=== PATIENT | male | born 1955 | race Caucasian/White ===

== ENCOUNTER 2020-09-01 19:57 | Inpatient (IN) | payer MEDICARE, OTHER ==
[~2020-09-01] VITALS: Ht 165.1 cm; Wt 92.1 kg
--- NOTE | 2020-09-01 20:45 | NUR ---
OPEN BED AVAILABILE IN ER. PT BIBFAMILY C/O WEAKNESS, SOB, FEVER. PER FAMILY PT TESTED POSITIVE FOR COVID X2 WEEKS AGO, NO RELIEF OF SYMPTOMS. O2 SAT 90% ON ROOM AIR, PLACED ON 6L NC TOLERATING WELL O2 SAT NOW 96%. FEBRILE ON ARRIVAL, LAST DOSE TYLENOL 500MG X2HR SEROLOGY TECHNICIAN. PT AAOX4, NORTH KOREAN SPEAKING. RESPIRATIONS EVEN AND UNLABORED. SKIN WARM TO TOUCH. NO ACUTE DISTRESS NOTED AT THIS TIME. PLACED IN GOWN AND ON MONITOR, WILL CONTINUE TO MONITOR
--- NOTE | 2020-09-01 20:55 | NUR ---
IV INITIATED RAC 20G. LABS DRAWN FROM SITE. EQUITIES ANALYST AT BEDSIDE FOR COLLECTION. IV INTACT AND PATENT, PLACED ON SALINE LOCK
[2020-09-01] MEDS ORDERED: IV NS 0.9% 500 ML IV ONE (21:00)
--- NOTE | 2020-09-01 21:15 | NUR ---
covid swab collected and sent to the lab.
[2020-09-01 21:17] LABS: BASOPHILS % (AUTO) 0.4 % (0.0-2.0); EOSINOPHILS % (AUTO) 0.1 % (0.0-6.0); HEMATOCRIT 44 % (39-51); HEMOGLOBIN 15.1 g/dL (13.5-17.5); LYMPHOCYTES # (AUTO) 1.4 /CMM (0.8-4.8); LYMPHOCYTES % (AUTO) 21.9 % (20.0-44.0); MEAN CORPUSCULAR HGB CONC 35 g/dl (31.0-36.0); MEAN CORPUSCULAR VOLUME 82 fL (80-96); NEUTROPHILS % (AUTO) 61.6 % (43.0-81.0); PLATELET COUNT (AUTO) 205 /CMM (150-450); RED BLOOD CELL COUNT(AUTO) 5.35 MIL/uL (4.5-6.0); WHITE BLOOD COUNT (AUTO) 6.5 K/uL (4.3-11.0)
[2020-09-01] MEDS ORDERED: AZITHROMYCIN 500 MG in IV D5W 250 ML IV ONE (21:30)
[2020-09-01] MEDS ORDERED: DEXAMETHASONE SOD PHOSPHATE 10 MG/ML VIAL IV ONE (21:30)
[2020-09-01] MEDS ORDERED: CEFTRIAXONE 1GM BAG (ER ONLY) 50 ML IV ONE (21:30)
[2020-09-01 21:34] LABS: D-DIMER 1.18 mg/L(FEU (0.17-0.50)
[2020-09-01] MEDS ORDERED: DEXAMETHASONE SOD PHOSPHATE 10 MG/ML VIAL ONE (21:40)
[2020-09-01] MEDS ORDERED: CEFTRIAXONE 1 G VIAL ONE (21:41)
[2020-09-01] MEDS ORDERED: AZITHROMYCIN 500 MG VIAL ONE (21:41)
--- NOTE | 2020-09-01 21:41 | NUR ---
AWAITING FOR URINE SAMPLE.
[2020-09-01 21:43] LABS: ALBUMIN 2.8 g/dL (3.4-5.0); BILIRUBIN,TOTAL 0.6 mg/dL (0.2-1.0); CALCIUM, SERUM 7.9 mg/dL (8.5-10.1); CREATININE 1.1 mg/dL (0.6-1.3)
--- NOTE | 2020-09-01 21:50 | NUR ---
ADEOLA MIRANDA AT BEDSIDE SPEAKING TO PT AND DAUGHTER REGARDING PLAN OF CARE.
[2020-09-01 22:17] LABS: C-REACTIVE PROTEIN 17.1 mg/dL (0.0-0.9)
[2020-09-01] MEDS ORDERED: DEXTROSE 50%-WATER 50 ML DISP.SYRIN IV PRN (22:30)
[2020-09-01] MEDS ORDERED: ONDANSETRON HCL/PF 4 MG/2 ML VIAL IVP PRN (22:30)
[2020-09-01] MEDS ORDERED: ALBUTEROL SULFATE 8 GM HFA.AER.AD IH PRN (22:30)
[2020-09-01] MEDS ORDERED: TEMAZEPAM 15 MG CAPSULE PO PRN (22:30)
[2020-09-01] MEDS ORDERED: ACETAMINOPHEN 325 MG TABLET PO PRN (22:30)
--- NOTE | 2020-09-02 04:09 | NUR ---
PT ASLEEP, VSS.
[2020-09-02 05:25] LABS: BASOPHILS % (AUTO) 0.3 % (0.0-2.0); HEMATOCRIT 45 % (39-51); HEMOGLOBIN 15.6 g/dL (13.5-17.5); LYMPHOCYTES # (AUTO) 0.8 /CMM (0.8-4.8); LYMPHOCYTES % (AUTO) 16.9 % (20.0-44.0); MEAN CORPUSCULAR HGB CONC 34 g/dl (31.0-36.0); MEAN CORPUSCULAR VOLUME 83 fL (80-96); MONOCYTES # (AUTO) 0.5 /CMM (0.1-1.30); MONOCYTES % (AUTO) 10.8 % (2.0-12.0); NEUTROPHILS # (AUTO) 3.3 /CMM (1.8-8.9); PLATELET COUNT (AUTO) 198 /CMM (150-450); RED BLOOD CELL COUNT(AUTO) 5.47 MIL/uL (4.5-6.0); WHITE BLOOD COUNT (AUTO) 4.6 K/uL (4.3-11.0)
[2020-09-02 05:36] LABS: ALBUMIN 2.7 g/dL (3.4-5.0); BILIRUBIN,TOTAL 0.6 mg/dL (0.2-1.0); CALCIUM, SERUM 8.4 mg/dL (8.5-10.1); POTASSIUM 4.8 mmol/L (3.5-5.1); TOTAL PROTEIN, SERUM 7.1 g/dL (6.4-8.2)
--- NOTE | 2020-09-02 07:19 | NUR ---
AWAKE RESTING COMFORTABLY. VSS. NOTED TO BE SAT 92-95% ON 10L SIMPLE MASK
[2020-09-02] MEDS: BLOOD SUGAR DIAGNOSTIC 1 EACH STRIP IN SCH ×4 (07:37→22:29)
[2020-09-02] MEDS: INSULIN REGULAR, HUMAN 100 UNIT/ML 3 ML VIAL SQ PRN ×4 (07:45→22:31)
--- NOTE | 2020-09-02 07:56 | NUR ---
REPORT GIVEN TO NAINA HAMMOND FOR WAYNE
[2020-09-02] MEDS ORDERED: ROSU10TA29 PO (08:31)
[2020-09-02] MEDS ORDERED: GLIM1TAB18 PO (08:31)
[2020-09-02] MEDS ORDERED: METF-440 PO (08:31)
[2020-09-02] MEDS ORDERED: DICL50TA9 PO (08:31)
[2020-09-02] MEDS ORDERED: GABA300C PO (08:31)
[2020-09-02] MEDS ORDERED: LANS30CA56 PO (08:31)
[2020-09-02] MEDS ORDERED: VALS40TA12 PO (08:32)
[2020-09-02] MEDS ORDERED: DEXAMETHASONE SOD PHOSPHATE 4 MG/ML VIAL IV SCH (09:00)
[2020-09-02] MEDS ORDERED: ENOXAPARIN SODIUM 40 MG/0.4 ML DISP.SYRIN SQ ONE (09:16)
[2020-09-02] MEDS ORDERED: DEXAMETHASONE SOD PHOSPHATE 4 MG/ML VIAL ONE (09:16)
[2020-09-02] MEDS ORDERED: PANTOPRAZOLE 40 MG TABLET.DR PO ONE (09:16)
[2020-09-02] MEDS: PANTOPRAZOLE 40 MG TABLET.DR PO SCH (09:38)
[2020-09-02] MEDS: ENOXAPARIN SODIUM 40 MG/0.4 ML DISP.SYRIN SQ SCH (09:39)
--- NOTE | 2020-09-02 09:41 | NUR ---
PATIENT A/OX4, BREATHING EVEN AND UNLABORED, TOLERATING CURRENT OXYGEN AT THIS TIME. PULSE OX 88% ON ROOM AIR. ATE BREAKFAST AND TOLERATED WELL.
--- NOTE | 2020-09-02 12:30 | NUR ---
PATIENT RESTING, NO DISTRESS NOTED. NEEDS ATTENDED. AMBULATES TO RESTROOM.
[2020-09-02] MEDS ORDERED: REMDESIVIR (CHARGED) 200 MG, *LOADING DOSE 1 EA in IV NS 0.9% 210 ML IV ONE (17:00)
--- NOTE | 2020-09-02 19:56 | NUR ---
TOOK OVER PT CARE. PT NOTED TO BE ON 10L SIMPLE MASK, SAT 94. NO SOB NOTED. PT DID C/O COUGH WHICH I WILL ADMINISTER ROBITUSSIN. PT AWAKE, AWARE OF PLAN OF CARE. VSS. WILL CONTINUE TO MONITOR.
[2020-09-02] MEDS ORDERED: GUAIFENESIN/CODEINE 10 ML UDC ONE (20:06)
[2020-09-02] MEDS: GUAIFENESIN/CODEINE 10 ML UDC PO PRN (20:10)
[2020-09-02] MEDS: CEFTRIAXONE 1 G in IV D5W 50 ML IV SCH (21:00)
[2020-09-02] MEDS: AZITHROMYCIN 500 MG in IV D5W 250 ML IV SCH (22:29)
--- NOTE | 2020-09-02 22:35 | NUR ---
PT NOTED TO BE SAT 93-94% ON 10L SIMPLE MASK. PT WAS SWITCHED TO 15L N.R. PT STATING NR IS HELPING HIM BREATH BETTER. WILL CONTINUE TO MONITOR. SAT 98% ON NR.
--- NOTE | 2020-09-02 22:36 | NUR ---
PT AMBULATED TO THE RESTROOM.
[2020-09-03 05:25] LABS: BASOPHILS % (AUTO) 0.3 % (0.0-2.0); HEMATOCRIT 45 % (39-51); HEMOGLOBIN 15.6 g/dL (13.5-17.5); LYMPHOCYTES # (AUTO) 1.4 /CMM (0.8-4.8); LYMPHOCYTES % (AUTO) 11.5 % (20.0-44.0); MEAN CORPUSCULAR HGB CONC 34 g/dl (31.0-36.0); MEAN CORPUSCULAR VOLUME 82 fL (80-96); MONOCYTES # (AUTO) 1.6 /CMM (0.1-1.30); MONOCYTES % (AUTO) 13.3 % (2.0-12.0); NEUTROPHILS % (AUTO) 74.9 % (43.0-81.0); PLATELET COUNT (AUTO) 238 /CMM (150-450); RED BLOOD CELL COUNT(AUTO) 5.51 MIL/uL (4.5-6.0)
[2020-09-03 05:34] LABS: ALBUMIN 2.5 g/dL (3.4-5.0); BILIRUBIN,DIRECT 0.2 mg/dL (0.0-0.2); BILIRUBIN,TOTAL 0.4 mg/dL (0.2-1.0); CALCIUM, SERUM 8.5 mg/dL (8.5-10.1); POTASSIUM 4.5 mmol/L (3.5-5.1)
--- NOTE | 2020-09-03 06:30 | NUR ---
PT RESTING, VSS. ON MONITORT AND PULSE OX.
--- NOTE | 2020-09-03 07:28 | NUR ---
REPROT GIVEN TO NAINA HAMMOND FOR WAYNE
[2020-09-03] MEDS: BLOOD SUGAR DIAGNOSTIC 1 EACH STRIP IN SCH ×4 (08:30→22:02)
[2020-09-03] MEDS ORDERED: ENOXAPARIN SODIUM 40 MG/0.4 ML DISP.SYRIN SQ ONE (09:09)
[2020-09-03] MEDS ORDERED: PANTOPRAZOLE 40 MG VIAL ONE (09:10)
[2020-09-03] MEDS ORDERED: DEXAMETHASONE SOD PHOSPHATE 10 MG/ML VIAL ONE (09:10)
[2020-09-03] MEDS: PANTOPRAZOLE 40 MG TABLET.DR PO SCH (09:19)
[2020-09-03] MEDS: DEXAMETHASONE SOD PHOSPHATE 4 MG/ML VIAL IV SCH (09:19)
[2020-09-03] MEDS: ENOXAPARIN SODIUM 40 MG/0.4 ML DISP.SYRIN SQ SCH ×2 (09:20→21:33)
[2020-09-03] MEDS: INSULIN REGULAR, HUMAN 100 UNIT/ML 3 ML VIAL SQ PRN ×3 (11:12→21:58)
--- NOTE | 2020-09-03 15:30 | NUR ---
report given to steph bryan
--- NOTE | 2020-09-03 15:36 | NUR ---
transferred to 117-1
[2020-09-03 15:40] VITALS: BP 96/60
--- NOTE | 2020-09-03 15:40 | NUR ---
TRUCK MECHANIC APPRENTICE NOTES PATIENT RECEIVED VIA CRYSTALRMILDRED, ALERT AND ORIENTED X 4, TAMAZIGHT SPEAKING, ON NRB, 15 LITERS WITH NO RESPIRATORY DISTRESS AT THIS TIME. PATIENT DENIES ANY CHEST PAIN, PAIN OR DISCOMFORT. IV ACCESS INTACT AND PATENT. SKIN WARM AND DRY TO TOUCH. SAFETY AND ISOLATION PRECAUTIONS IMPLEMENTED WITH BED LOCKED, BILATERAL SIDE RAILS UP, BED IN THE LOWEST POSITION AND CALL LIGHT WITHIN EASY REACH OF THE PATIENT. WILL CONTINUE TO MONITOR PATIENT.
[2020-09-03 16:00] VITALS: BP 96/62
[2020-09-03] MEDS: REMDESIVIR (CHARGED) 100 MG in IV NS 0.9% 100 ML IV SCH (16:56)
--- NOTE | 2020-09-03 19:32 | NUR ---
SCHOOL YEAR NANNY NOTES PATIENT IN BED RESTING COMFORTABLY, ALERT AND ORIENTED X 4, MAORI SPEAKING. ON NRB MASK 15 LITERS. ON BUILDING OFFICIAL SR. PATIENT DENIES PAIN AND DISCOMFORT AT THIS TIME. IV ACCESS INTACT AND PATENT MET ALL OF PATIENT'S NEEDS. SKIN KEPT WARM, CLEAN AND DRY. SAFETY PRECAUTIONS IMPLEMENTED WITH BED LOCKED, BILATERAL SIDE RAILS UP, BED ALARM ON, AND CALL LIGHT WITHIN EASY REACH. WILL ENDORSE PLAN OF CARE TO UPCOMING RN.
[2020-09-03 20:00] VITALS: BP 116/79
[2020-09-03] MEDS: AZITHROMYCIN 500 MG in IV D5W 250 ML IV SCH (21:35)
[2020-09-03] MEDS: CEFTRIAXONE 1 G in IV D5W 50 ML IV SCH (21:35)
[2020-09-04] VITALS: BP 106/62
[2020-09-04 04:00] VITALS: BP 102/70
--- NOTE | 2020-09-04 06:09 | NUR ---
RN notes Patient in bed resting comfortably with no significant change of condition. Alert and oriented x 4, venezuelan speaking but understands enlglish. at the other bed. No respiratory distress or shortness of breath. Breathing even and unlabored. On non-rebreather mask, tolerating well. No complaint of pain or discomfort. Kept clean and dry. Will endorse to next shift for continuity of care.
[2020-09-04 07:22] LABS: BASOPHILS % (AUTO) 0.1 % (0.0-2.0); HEMATOCRIT 43 % (39-51); HEMOGLOBIN 14.7 g/dL (13.5-17.5); LYMPHOCYTES # (AUTO) 1.2 /CMM (0.8-4.8); LYMPHOCYTES % (AUTO) 9.7 % (20.0-44.0); MEAN CORPUSCULAR HGB CONC 34 g/dl (31.0-36.0); MEAN CORPUSCULAR VOLUME 83 fL (80-96); MONOCYTES # (AUTO) 1.8 /CMM (0.1-1.30); MONOCYTES % (AUTO) 14.2 % (2.0-12.0); NEUTROPHILS # (AUTO) 9.6 /CMM (1.8-8.9); PLATELET COUNT (AUTO) 260 /CMM (150-450); RED BLOOD CELL COUNT(AUTO) 5.23 MIL/uL (4.5-6.0); WHITE BLOOD COUNT (AUTO) 12.6 K/uL (4.3-11.0)
[2020-09-04 08:00] VITALS: BP 107/70
--- NOTE | 2020-09-04 08:00 | NUR ---
OPEN NOTES PATIENT IS A/O X 4 ON 15L NON-REBREATHER WITH NO SIGNS OF DISTRESS. IV R AC #20 G . ON TELE MONITOR SR 72. NO COMPLAIN OF PAIN AT THIS TIME. SAFETY MEASURES ARE APPLIED BED IS IN THE LOWEST POSITION SIDE RAILS UP X 2. CALL LIGHT WITHIN REACH WILL CONTINUE TO MONITOR.
[2020-09-04 08:11] LABS: ALBUMIN 2.3 g/dL (3.4-5.0); BILIRUBIN,DIRECT 0.2 mg/dL (0.0-0.2); BILIRUBIN,TOTAL 0.5 mg/dL (0.2-1.0); CALCIUM, SERUM 8.1 mg/dL (8.5-10.1); CREATININE 0.8 mg/dL (0.6-1.3); POTASSIUM 4.2 mmol/L (3.5-5.1); TOTAL PROTEIN, SERUM 6.3 g/dL (6.4-8.2)
[2020-09-04] MEDS: BLOOD SUGAR DIAGNOSTIC 1 EACH STRIP IN SCH ×4 (09:01→21:31)
[2020-09-04] MEDS: PANTOPRAZOLE 40 MG TABLET.DR PO SCH (09:02)
[2020-09-04] MEDS: DEXAMETHASONE SOD PHOSPHATE 4 MG/ML VIAL IV SCH (09:02)
[2020-09-04] MEDS: ENOXAPARIN SODIUM 40 MG/0.4 ML DISP.SYRIN SQ SCH ×2 (09:03→20:37)
[2020-09-04] MEDS: INSULIN REGULAR, HUMAN 100 UNIT/ML 3 ML VIAL SQ PRN ×4 (09:07→21:30)
[2020-09-04 12:00] VITALS: BP 99/69
[2020-09-04 16:00] VITALS: BP 116/69
[2020-09-04] MEDS: REMDESIVIR (CHARGED) 100 MG in IV NS 0.9% 100 ML IV SCH (16:48)
--- NOTE | 2020-09-04 18:42 | NUR ---
RN CLOSE NOTES PATIENT IS A/O X 4 ON 10L SIMPLE MASK SPO2 90-95% WITH NO SIGNS OF DISTRESS. IV R AC #20G. ON TELE MONITOR SR/SB 54 WITH PVC. PATIENT KEPT CLEAN AND DRY. ALL NEEDS, CARE, TREATMENT, AND MEDICATIONS WERE ADMINISTERED ANTICIPATED PER ORDER. SAFETY MEASURES ARE APPLIED, BED IS IN LOW POSITION SIDE RAILS UP X 2. CALL LIGHT WITHIN REACH WILL ENDORSE TO THE RHIA NURSE.
--- NOTE | 2020-09-04 19:17 | NUR ---
RN NOTE RECEIVED PT AWAKE AND ALERT/ORIENTED X 3 IN BED IN SEMI ROBISON'S POSITION. PT ON 10L FACEMASK, RESPIRATIONS EVEN AND UNLABORED. PT DENIES PAIN OR DISCOMFORT. PT IS SR ON THE TELE MONITOR. IV ON RIGHT AC PATENT AND INTACT WITHOUT COMPLICATIONS NOTED AT SITE. PLAN OF CARE DISCUSSED, CALL LIGHT WITHIN REACH, SAFETY MEASURES IN PLACE PER PROTOCOL, WILL MONITOR PATIENT. .
[2020-09-04 20:00] VITALS: BP 131/93
[2020-09-04] MEDS: CEFTRIAXONE 1 G in IV D5W 50 ML IV SCH (20:27)
[2020-09-04] MEDS: AZITHROMYCIN 500 MG in IV D5W 250 ML IV SCH (21:07)
--- NOTE | 2020-09-04 22:00 | NUR ---
RN NOTE ALL DUE MEDICATIONS ADMINISTERED. PT TOLERATED WELL, WILL CONTINUE TO MONITOR
[2020-09-05] VITALS: BP 118/73
--- NOTE | 2020-09-05 01:00 | NUR ---
RN NOTE PT SLEEPING COMFORTABLY IN BED IN SEMI ROBISON'S POSITION. ON 10L FACEMASK, RESPIRATIONS EVEN AND UNLABORED. NO SIGNS OF PAIN OR DISCOMFORT. WILL CONTINUE TO MONITOR PATIENT.
[2020-09-05] MEDS: GUAIFENESIN/CODEINE 10 ML UDC PO PRN (01:43)
[2020-09-05 04:00] VITALS: BP 109/65
--- NOTE | 2020-09-05 04:13 | NUR ---
RN NOTE PT ASSISTED TO THE BATHROOM. TOLERATED WELL. OFFERED PT PARTIAL BED BATH AND LINEN CHANGE BUT PT REFUSED.
[2020-09-05 06:40] LABS: ALBUMIN 2.5 g/dL (3.4-5.0); BILIRUBIN,DIRECT 0.2 mg/dL (0.0-0.2); BILIRUBIN,TOTAL 0.5 mg/dL (0.2-1.0); CALCIUM, SERUM 8.2 mg/dL (8.5-10.1); CREATININE 0.8 mg/dL (0.6-1.3); POTASSIUM 3.6 mmol/L (3.5-5.1); TOTAL PROTEIN, SERUM 6.6 g/dL (6.4-8.2)
--- NOTE | 2020-09-05 07:00 | NUR ---
RN NOTE NO ACUTE CHANGES OBSERVED OVERNIGHT, PT SLEEPING IN BED IN SEMI ROBISON'S POSITION BUT EASILY AROUSABLE. PT ON 10L FACEMASK, RESPIRATIONS EVEN AND UNLABORED. NO SIGNS OR SYMPTOMS OR PAIN OR DISCOMFORT. PT HAS BEEN SR VIA TELE MONITOR ALL SHIFT. IV ON RIGHT AC PATENT AND INTACT WITHOUT COMPLICATIONS NOTED AT SITE. CALL LIGHT WITHIN REACH, SAFETY MEASURES IN PLACE PER PROTOCOL, BED LOCKED AND IN LOW POSITION, ALL NEEDS MET AND ATTENDED TO, WILL ENDORSE TO MORNING RN FOR WAYNE.
[2020-09-05 07:13] LABS: BASOPHILS % (AUTO) 0.1 % (0.0-2.0); EOSINOPHILS % (AUTO) 0.4 % (0.0-6.0); HEMATOCRIT 46 % (39-51); HEMOGLOBIN 15.4 g/dL (13.5-17.5); LYMPHOCYTES # (AUTO) 1.4 /CMM (0.8-4.8); LYMPHOCYTES % (AUTO) 10.9 % (20.0-44.0); MEAN CORPUSCULAR HGB CONC 34 g/dl (31.0-36.0); MEAN CORPUSCULAR VOLUME 83 fL (80-96); MONOCYTES # (AUTO) 1.6 /CMM (0.1-1.30); MONOCYTES % (AUTO) 12.5 % (2.0-12.0); NEUTROPHILS # (AUTO) 9.8 /CMM (1.8-8.9); NEUTROPHILS % (AUTO) 76.1 % (43.0-81.0); PLATELET COUNT (AUTO) 296 /CMM (150-450); RED BLOOD CELL COUNT(AUTO) 5.49 MIL/uL (4.5-6.0); WHITE BLOOD COUNT (AUTO) 12.9 K/uL (4.3-11.0)
[2020-09-05] MEDS: BLOOD SUGAR DIAGNOSTIC 1 EACH STRIP IN SCH ×4 (07:30→21:32)
--- NOTE | 2020-09-05 07:30 | NUR ---
MACHINE OPERATOR HOP PICKER OPENING NOTES PATIENT A/O X 4 IN ROOM AIR, WITH NO SIGNS OF DISTRESS. IV R AC #20 G. NOT IN ANY ACUTE DISTRESS AT THIS TIME. SAFETY MEASURES OBSERVED, AND BED IS IN THE LOWEST POSITION SIDE RAILS UP X 2. CALL LIGHT WITHIN REACH WILL CONTINUE TO MONITOR
[2020-09-05 08:00] VITALS: BP 112/82
[2020-09-05] MEDS: ENOXAPARIN SODIUM 40 MG/0.4 ML DISP.SYRIN SQ SCH ×2 (08:47→20:38)
[2020-09-05] MEDS: PANTOPRAZOLE 40 MG TABLET.DR PO SCH (08:49)
[2020-09-05] MEDS: DEXAMETHASONE SOD PHOSPHATE 4 MG/ML VIAL IV SCH (08:49)
[2020-09-05] MEDS: INSULIN REGULAR, HUMAN 100 UNIT/ML 3 ML VIAL SQ PRN ×4 (09:36→21:31)
[2020-09-05 12:00] VITALS: BP 112/82
[2020-09-05 16:00] VITALS: BP 112/82
[2020-09-05] MEDS: REMDESIVIR (CHARGED) 100 MG in IV NS 0.9% 100 ML IV SCH (17:00)
--- NOTE | 2020-09-05 18:54 | NUR ---
RN CLOSING NOTES PATIENT IS A/O X 4 IN ROOM AIR, WITH NO SIGNS OF DISTRESS. IV R AC #20 G. NO COMPLAIN OF PAIN AT THIS TIME. PATIENT KEPT CLEAN AND DRY. ALL NEEDS ATTENDED TO. SAFETY MEASURES ARE APPLIED, BED IS IN LOW POSITION SIDE RAILS UP X 2. WILL ENDORSE TO NEXT SHIFT FOR WAYNE.
--- NOTE | 2020-09-05 19:20 | NUR ---
RN NOTE RECEIVED PT AWAKE AND ALERT/ORIENTED X 3 IN BED IN SEMI ROBISON'S POSITION. PT ON 10L FACEMASK, RESPIRATIONS EVEN AND UNLABORED. PT DENIES PAIN OR DISCOMFORT. PT IS SR ON THE TELE MONITOR. IV ON RIGHT AC PATENT AND INTACT. FLUSHED WITHOUT COMPLICATIONS NOTED AT SITE. PLAN OF CARE DISCUSSED, PT VERBALIZED UNDERSTANDING, PT ASSISTED TO THE BATHROOM WITH 1 PERSON ASSIST AND TOLERATED WELL, CALL LIGHT WITHIN REACH, SAFETY MEASURES IN PLACE PER PROTOCOL, WILL MONITOR PATIENT.
[2020-09-05 20:00] VITALS: BP 121/71
[2020-09-05] MEDS: CEFTRIAXONE 1 G in IV D5W 50 ML IV SCH (20:05)
[2020-09-05] MEDS: AZITHROMYCIN 500 MG in IV D5W 250 ML IV SCH (21:11)
--- NOTE | 2020-09-05 23:00 | NUR ---
RN NOTE ALL DUE MEDICATIONS ADMINISTERED. PT TOLERATED WELL, WILL CONTINUE TO MONITOR.
[2020-09-06] VITALS (8 sets, daily range): BP systolic 96–120; BP diastolic 58–87
--- NOTE | 2020-09-06 02:00 | NUR ---
RN NOTE PT SLEEPING IN BED COMFORTABLY WITHOUT SIGNS OF DISTRESS, PAIN OR DISCOMFORT. SAFETY MEASURES IN PLACE, WILL CONTINUE TO MONITOR.
--- NOTE | 2020-09-06 07:05 | NUR ---
RN NOTE NO ACUTE CHANGES OVERNIGHT. PT AWAKE AND ALERT/ORIENTED X 3 SITTING UP IN BED. PT ON 10L FACEMASK, RESPIRATIONS EVEN AND UNLABORED. PT DENIES PAIN OR DISCOMFORT. PT IS SR ON THE TELE MONITOR. IV ON RIGHT AC PATENT AND INTACT. FLUSHED WITHOUT COMPLICATIONS NOTED AT SITE. PT VERBALIZED WANTING TO GO HOME TODAY AGAINST MEDICAL ADVICE, EDUCATED PT AND IMPORTANCE OF COMPLETING ORDERED TREATMENT DURING HOSPITALIZATION AND THAT CARE CANNOT BE PROVIDED IF THEY LEAVE AMA, PT AND CONTINUE TO STATE WISHING TO GO HOME TODAY, ENDORSED TO MORNING RN.
--- NOTE | 2020-09-06 08:00 | NUR ---
RN OPENING NOTE. RECEIVED PATIENT IN BED AND HOB RAISED TO SEMI FOWLERS POSITION. PATIENT IS AOX3 AND VERBALIZING HE WANTS TO GO HOME AMA. HE IS ON 10L NASAL CANULA. SKIN IS INTACT. RAC #20 IS PATENT, INTACT, AND HAS NO SIGNS OF INFILTRATION. BED IS IN THE LOWEST POSITION, 2 SIDE RAILS RAISED, CALL ANGELO WITHIN REACH, AND ALL HOSPITAL SAFETY PRECAUTIONS ARE BEING FOLLOWED. WILL CONTINUE TO MONITOR THROUGHOUT SHIFT.
[2020-09-06 08:38] LABS: BASOPHILS % (AUTO) 0.1 % (0.0-2.0); EOSINOPHILS % (AUTO) 0.7 % (0.0-6.0); HEMATOCRIT 47 % (39-51); HEMOGLOBIN 15.4 g/dL (13.5-17.5); LYMPHOCYTES # (AUTO) 2.3 /CMM (0.8-4.8); LYMPHOCYTES % (AUTO) 15.2 % (20.0-44.0); MEAN CORPUSCULAR HGB CONC 33 g/dl (31.0-36.0); MEAN CORPUSCULAR VOLUME 84 fL (80-96); MONOCYTES # (AUTO) 1.6 /CMM (0.1-1.30); MONOCYTES % (AUTO) 10.9 % (2.0-12.0); NEUTROPHILS # (AUTO) 10.8 /CMM (1.8-8.9); NEUTROPHILS % (AUTO) 73.1 % (43.0-81.0); PLATELET COUNT (AUTO) 341 /CMM (150-450); RED BLOOD CELL COUNT(AUTO) 5.56 MIL/uL (4.5-6.0); WHITE BLOOD COUNT (AUTO) 14.8 K/uL (4.3-11.0)
[2020-09-06 08:59] LABS: ALBUMIN 2.5 g/dL (3.4-5.0); BILIRUBIN,DIRECT 0.3 mg/dL (0.0-0.2); BILIRUBIN,TOTAL 0.7 mg/dL (0.2-1.0); CALCIUM, SERUM 7.9 mg/dL (8.5-10.1); CREATININE 0.8 mg/dL (0.6-1.3); POTASSIUM 3.7 mmol/L (3.5-5.1); TOTAL PROTEIN, SERUM 6.9 g/dL (6.4-8.2)
[2020-09-06] MEDS: DEXAMETHASONE SOD PHOSPHATE 4 MG/ML VIAL IV SCH (09:14)
[2020-09-06] MEDS: ENOXAPARIN SODIUM 40 MG/0.4 ML DISP.SYRIN SQ SCH ×2 (09:15→21:51)
[2020-09-06] MEDS: INSULIN REGULAR, HUMAN 100 UNIT/ML 3 ML VIAL SQ PRN ×4 (09:16→21:54)
[2020-09-06] MEDS: PANTOPRAZOLE 40 MG TABLET.DR PO SCH (09:26)
[2020-09-06] MEDS: BLOOD SUGAR DIAGNOSTIC 1 EACH STRIP IN SCH ×4 (09:26→21:52)
--- NOTE | 2020-09-06 09:56 | NUR ---
AUTOMOBILE SALESMAN NOTE DR SIMON AT BEDSIDE NOTIFIED THAT PATIENT WANTS TO TO AMA, SPOKE WITH PATIEN STILL WANTS TO GO HOME ,LEFT A MESSAGE TO MILANA SOLAR LAB TECHNICIAN TO ARRANGE O2 AT HOME
--- NOTE | 2020-09-06 14:24 | NUR ---
ARMOR RECONNAISSANCE VEHICLE CREWMAN NOTE PATIENT TITRATED FROM 10 TO 8L OF O2 ON NC. WILL CONTINUE TO MONITOR.
--- NOTE | 2020-09-06 15:34 | NUR ---
telephone recorder note resting comfortably not in distress, no sob noted at this time ,will cont
[2020-09-06] MEDS: REMDESIVIR (CHARGED) 100 MG in IV NS 0.9% 100 ML IV SCH (17:38)
--- NOTE | 2020-09-06 18:28 | NUR ---
RN CLOSING NOTE PATIENT IS IN BED WITH HOB RAISED TO SEMI FOWLERS. PATIENT IS AOX3. PATIENTS RAC #20 IS INTACT, PATENT, AND HAS NO SIGNS OF INFILTRATION. PATIENT IS ON 8L NASAL CANULA. SKIN IS INTACT. BED IS LOCKED IN THE LOWEST POSITION, CALL ANGELO WITHIN REACH, 3 SIDE RAILS ARE RAISED, AND ALL HOSPITAL SAFETY PRECAUTIONS ARE BEING FOLLOWED. WILL ENDORSE TO INSPECTOR PURCHASED PARTS NURSE.
--- NOTE | 2020-09-06 20:12 | NUR ---
RN NOTES PATIENT ALERT AND ORIENTED X3, FRENCH SPEAKING WITH LITTLE PITCAIRN ISLANDER. ON O2 @ 8LPM VIA NASAL CANNULA, O2 SAT WNL. DENIES ANY PAIN OR DISCOMFORT. WITH RIGHT AC #20 PATENT AND INTACT. ALL NEEDS ANTICIPATED. BED LOCKED AND IN LOWEST POSITION. SIDE RAILS UP X2, SAFETY MEASURES IMPLEMENTED. CALL LIGHT WITHIN REACH. WILL CONTINUE TO MONITOR.
[2020-09-06] MEDS: CEFTRIAXONE 1 G in IV D5W 50 ML IV SCH (21:50)
[2020-09-06] MEDS: AZITHROMYCIN 500 MG in IV D5W 250 ML IV SCH (22:08)
[2020-09-07] VITALS: BP 112/71
[2020-09-07 04:00] VITALS: BP 108/70
[2020-09-07 06:30] LABS: BASOPHILS % (AUTO) 0.1 % (0.0-2.0); EOSINOPHILS % (AUTO) 2.4 % (0.0-6.0); HEMATOCRIT 41 % (39-51); LYMPHOCYTES # (AUTO) 1.5 /CMM (0.8-4.8); MEAN CORPUSCULAR HGB CONC 34 g/dl (31.0-36.0); MEAN CORPUSCULAR VOLUME 82 fL (80-96); MONOCYTES # (AUTO) 1.8 /CMM (0.1-1.30); MONOCYTES % (AUTO) 13.4 % (2.0-12.0); NEUTROPHILS # (AUTO) 9.9 /CMM (1.8-8.9); NEUTROPHILS % (AUTO) 73.1 % (43.0-81.0); PLATELET COUNT (AUTO) 304 /CMM (150-450); RED BLOOD CELL COUNT(AUTO) 5.01 MIL/uL (4.5-6.0); WHITE BLOOD COUNT (AUTO) 13.5 K/uL (4.3-11.0)
--- NOTE | 2020-09-07 06:58 | NUR ---
RN NOTES PATIENT ALERT AND ORIENTED X3, MONGOLIAN SPEAKING WITH LITTLE SAMI. ON O2 @ 8LPM VIA NASAL CANNULA, O2 SAT 96%. WITH RIGHT AC #20 PATENT AND INTACT. ALL NEEDS ANTICIPATED. ALL DUE MEDS GIVEN ORDERED. BED LOCKED AND IN LOWEST POSITION. SIDE RAILS UP X2, SAFETY MEASURES IMPLEMENTED. CALL LIGHT WITHIN REACH. ENDORSE TO ONCOMING SHIFT.
[2020-09-07 07:02] LABS: CALCIUM, SERUM 8.3 mg/dL (8.5-10.1); CREATININE 0.7 mg/dL (0.6-1.3); POTASSIUM 4.2 mmol/L (3.5-5.1)
--- NOTE | 2020-09-07 07:30 | NUR ---
RN OPENING NOTE PATIENT RECEIVED AWAKE IN BED, COMFORTABLY, A&OX3 SWEDISH SPEAKING, ABLE TO MAKE NEEDS KNOWN, BREATHING EVENLY AND UNLABORED, SATTING AT 93% AT ROOM AIR. NO SOB NOTED. DENIES PAIN. NO ACUTE DISTRESS NOTED AT THIS TIME. RIGHT AC #20 INATACT AND PATENT. ISOLATION PRECUATIONS MAINTAINED. ALL NEEDS RENDERED. SAFETY PRECUATIONS IMPLEMENTED, BED LOCKED IN LOWEST POSITION, SIDE RAILS UP X2, CALL LIGHT WITHIN REACH. WILL CONTINUE TO PROVIDE CARE THROUGHOUT SHIFT.
[2020-09-07 08:00] VITALS: BP 115/56
--- NOTE | 2020-09-07 08:00 | NUR ---
RN Opening note PATIENT ALERT AND ORIENTED X3, ROMANSH SPEAKING WITH LITTLE LAO. O2 SAT 93% ON ROOM AIR
[2020-09-07] MEDS: BLOOD SUGAR DIAGNOSTIC 1 EACH STRIP IN SCH ×3 (08:25→12:00)
[2020-09-07] MEDS: DEXAMETHASONE SOD PHOSPHATE 4 MG/ML VIAL IV SCH (09:53)
[2020-09-07] MEDS: PANTOPRAZOLE 40 MG TABLET.DR PO SCH (09:53)
[2020-09-07] MEDS: ENOXAPARIN SODIUM 40 MG/0.4 ML DISP.SYRIN SQ SCH (10:01)
[2020-09-07] MEDS: INSULIN REGULAR, HUMAN 100 UNIT/ML 3 ML VIAL SQ PRN ×2 (10:05→13:06)
[2020-09-07] MEDS ORDERED: APIX2.5T PO (10:39)
[2020-09-07] MEDS ORDERED: METH4TAB3 PO (10:39)
[2020-09-07 11:58] LABS: BAND % (MANUAL) 1 % (0.0-5.0); LYMPHOCYTES % (MANUAL) 6 % (16-48); MONOCYTES % (MANUAL) 13 % (0-11.0); MYELOCYTES % 4 % (0-0); NEUTROPHILS % (MANUAL) 76 (42-76)
[2020-09-07 12:00] VITALS: BP 108/71
--- NOTE | 2020-09-07 12:00 | NUR ---
PATIENT ALERT AND ORIENTED X3, ROMANIAN SPEAKING WITH LITTLE GUATEMALAN. O2 SAT 98-99% ON ROOM AIR
--- NOTE | 2020-09-07 15:07 | NUR ---
patient discharged home with in stable condition. Transferred to the car by wheelchair. All belongings given to the patient and discharge instructions provided.
== END 2020-09-07 15:07 | disposition home health service (06) | DRG 177 ==
LOC: ER 20:00 → TRANSITION 22:15 → TELE1 09-03 14:51
PROVIDERS: ADMIT Nurse Practitioner Acute Care; ATTEND Internal Medicine
PROC: XW033E5 Introduction of Remdesivir Anti-infective into Peripheral Vein, Percutaneous Approach, New Technology Group 5 (ICD-10-PCS; principal; 2020-09-02)
DX: U07.1 COVID-19 (principal); J96.01 Acute respiratory failure with hypoxia; J12.82 Pneumonia due to coronavirus disease 2019; E66.9 Obesity, unspecified; E11.9 Type 2 diabetes mellitus without complications; E88.09 Other disorders of plasma-protein metabolism, not elsewhere classified; Z68.33 Body mass index [BMI] 33.0-33.9, adult
CPT/HCPCS: 36415; 71045-TC; 80048-TC; 80053-TC; 80076-TC; 82550-TC; 82728-TC; 82962-TC; 83605-TC; 83615-TC; 83880; 84484-TC; 85025-TC; 85378-TC; 85385-TC; 85610-TC; 85730-TC; 86140-TC; 87040-TC; A4216; C9113; G0378; J0456; J0696; J1100; J1650; J1815; J2405; J7030; J7040; J7050; J7060; U0003